=== PATIENT | female | born 1995 | race Hispanic/Latino ===

== ENCOUNTER 2019-11-28 09:34 | Inpatient (IN) | payer SELFPAY ==
[2019-11-28] MEDS ORDERED: Promethazine HCl 25 MG/ML VIAL IM PRN (09:54)
[2019-11-28] MEDS ORDERED: Ondansetron PF 4 MG/2 ML Vial IVP PRN (09:54)
[2019-11-28] MEDS ORDERED: hydrALAZINE 20 MG/ML VIAL SLOW IVP PRN ×2 (09:54→17:31)
[2019-11-28] MEDS ORDERED: Lidocaine 1% (PF) 30 ML VIAL SC PRN (09:54)
[2019-11-28] MEDS ORDERED: NS / Oxytocin 40 units/1000ml 1,000 ML IV PRN (09:54)
[2019-11-28] MEDS: Lactated Ringer's 1,000 ML IV SCH ×3 (09:55→21:47)
[2019-11-28] MEDS ORDERED: NS / Oxytocin 40 units/1000ml 1,000 ML ONE (10:02)
[2019-11-28] MEDS ORDERED: Lidocaine 1% (PF) 30 ML VIAL ONE (10:02)
[2019-11-28 10:09] VITALS: BMI 33.5
[2019-11-28 10:13] LABS: Hemoglobin 12.1 g/dL (12.0-16.0); Mean Corpuscular HGB CONC 33.8 g/dL (32.0-36.0); Mean Platelet Volume 9.4 fL (7.4-10.4); Platelet Count 287 thou/uL (130-400); RBC Distribution Width 12.5 % (11.5-14.5); Red Blood Cell (RBC) Count 4.49 mill/uL (4.20-5.40); White Blood Cell (WBC) Count 10.1 thou/uL (4.8-10.8)
--- NOTE | 2019-11-28 10:13 | PDOC.FPROB ---
FMR OB H&P: Medications - Current Allergies/Adverse Reactions: Allergies Allergy/AdvReac Type Severity Reaction Status Date / Time No Known Allergies Allergy Verified 11/28/19 10:15 FMR OB H&P: Vital Signs - Maternal Vital signs: Vital Signs - First Documented Pulse Resp BP 69 18 130/75 11/28/19 09:45 11/28/19 09:45 11/28/19 09:45 FMR OB H&P: A/P - Problem List (1) Current Visit: Yes Status: Acute Discussion: Date/Time: 11/28/19 1012 PCP: Lashanda LAZAR HPI: Patient comes in for contractions which started yesterday. She currently feels them about 3 minutes apart. She denies any other complaints. She affirms movement, denies ROM or bleeding. Denies SHAW, visual changes, SOB, or swelling. History: OB hx: x1 in [place] PMH: Hx of GDM previous preg PSH: neg Meds: PNV All: NKDA Soc Hx: denies smoking, alcohol, drugs Fam Hx: denies downs, congenital defects GBS: neg Blood type: A+ Ab screen: neg HIV: neg RPR: neg Hep B: neg Rubella: immune 2 hr GTT: neg GC/CT: neg PAP: NILM REVIEW OF SYSTEMS: Gen: no fever, chills, or sweats Neuro: no numbness/tingling, no weakness, denies headache ENT: denies congestion Eyes: no visual changes Resp: denies cough, no production, no SOB, no wheeze Card: denies chest pain, no palpitations GI: denies nausea, vomiting, diarrhea : no dysuria, no hematuria Skin: no rash, no erythema Psych: denies hx anxiety/depression Vitals: T: 98.5 R: 18 BP: 118/76 P:67 at: 98% on RA PHYSICAL EXAMINATION: General: NAD, alert and oriented x3 HEENT: EOMI, normal sclera Neck: Supple. Full ROM. Heart/Cardiovascular System: RRR, Cap refill < 3 seconds, no rub, no murmur Lungs/Respiratory System: clear to auscultation bilaterally. No increased work of breathing. Room air. Abdomen/Gastro-Intestinal System: no abdominal tenderness, normal bowel sounds, Gravid Extremities: Warm extremities. No cyanosis or edema. Neuro: No gross deficits appreciated Psychiatry: Awake, Alert and cooperative with exam Skin: no lesions, no rashes Musculoskeletal: Full ROM A/P: This is a 24 yo at 39.3 wks by 27 wk sono here for labor FHT: 150 baseline, mod variability, no decels, accels present [place]: contractions q3-5 min # - SVE 100/-1 - GBS neg - Expectant management # Enlarged cisterna magna - Needs US after delivery per [facility] Addendum - Attending - Attending Attestation Date/Time: 11/28/19 3274 I personally evaluated the patient and discussed the management with Dr. Workman. I agree with the History, Examination, Assessment and Plan documented above with any addition or exceptions noted below. active labor. hx enlarged cysterna magna. US DOL 2. expectant management.
[2019-11-28] MEDS ORDERED: Butorphanol Tartrate 1 MG/ML VIAL ONE (10:18)
[2019-11-28] MEDS: Butorphanol Tartrate 1 MG/ML VIAL SLOW IVP PRN ×2 (10:23→16:20)
[2019-11-28 10:49] LABS: Syphilis Antibody Nonreactive (Nonreactive); Syphilis Antibody Index 0.05 S/CO (<1.00 Non-Reactive)
[2019-11-28 10:50] LABS: HBSAg Index 0.17 S/CO (0-0.99); Hep B Surf Ag Non-Reactive S/CO (NonReactive)
--- NOTE | 2019-11-28 12:33 | PDOC.LDPN ---
Labor & Delivery Progress Note - Subjective Subjective: painful contractions, no concerns - Objective Vital signs reviewed and normal: yes General: breathing through contractions SVE: soft, anterior Dilation: 7 Effacement: 100% Station: -1 FHT: category 1, variability present [place] contractions every: 3 min Plan: continue plan of care -: - continue expectant mgmt - membranes intact - making change on her own - does not desire epidural.
--- NOTE | 2019-11-28 15:23 | PDOC.LDPN ---
Labor & Delivery Progress Note - Subjective Subjective: painful contractions - Objective Vital signs reviewed and normal: yes General: breathing through contractions SVE: 7100/-1 FHT: category 1 [place] contractions every: 3-5 min AROM: clear fluid IUPC placed: yes FSE placed: yes - Assessment (1) Current Visit: Yes Status: Acute Plan: continue plan of care -: This is a 24 yo at 39.3 wks by 27 wk sono here for labor #sIUP -SVE @ 1500: /-1 - SVE unchanged - AROM, clear fluid - IUPC FSE placed - Cat 1 FHTs after placement of IUPC and FSE, cxn q2-5 min - does not desire epidural. - Continue expectant management, recheck in 2 hours Sunita Workman MD PGY2
--- NOTE | 2019-11-28 16:47 | PDOC.OPDEL ---
OB Operative/Delivery Note Delivery Dr/Surgeon: Steven Herr (continuity), Heidi (attending) Pre-Delivery Diagnosis: active labor Procedure/Post Delivery Dx: spontaneous vaginal delivery Weeks gestation: 39 (39.3) Anesthesia: local (10 mL lidocaine 1%) - Additional Findings/Plan Placenta delivered: spontaneous Repaired Obstetrical Laceration: 1st degree (perineal) Estimated blood loss: QBL 100mL Compilations/Other Findings: Procedure: Spontaneous Vaginal Delivery Anesthesia: Local for Repair QBL: 100 ml Pre-op Diagnosis: 1. Term intrauterine in labor 2. ultrasound showing enlarged cisterna magnum Post-op Diagnosis: 1. Term intrauterine , delivered 2. same as above Indications: A 24 y/o female [id number] presents in active labor Delivery Note: This is 24yo F @ 39.3 wks who delivered a viable F infant at 1615. Following an uneventful antepartum course, a vigorous female was delivered over an intact perineum in the occipitoanterior position. Anterior Shoulder and then remainder of the body delivered. No nuchal cord. The head was held down and mouth and nares were bulb suctioned. Cord clamped after delayed cord clamping and cut and cord blood collected. Placenta delivered intact in the [place] presentation with a 3 vessel cord noted. Fundal massage was performed and the fundus was firm. The cervix and vagina were inspected. First degree perineal laceration noted and repaired with 3-0 vicryl in the usual fashion with good approximation and hemostasis after a local anesthetic of lidocaine was injected at site. One midline periurethral, one right labial abrasions noted and hemostatic. went to mom for [id number] in good condition. Apgars were 8/9 at 1 & 5 minutes, respectively. Patient tolerated delivery well and went to after routine recovery/care. Post delivery plan: routine recovery Addendum - Attending - Attending Attestation Date/Time: 11/28/19 5303 I was present for the entire delivery and agree with the above documentation.
[2019-11-28] MEDS ORDERED: Milk Of Magnesia 30 ML UDCUP PO PRN (17:31)
[2019-11-28] MEDS ORDERED: NS / Oxytocin 40 units/1000ml 1,000 ML IV SCH (17:31)
[2019-11-28] MEDS ORDERED: Lanolin Ointment 7 GM TUBE TOP PRN (17:31)
[2019-11-28] MEDS ORDERED: diphenhydrAMINE 25 MG CAP PO PRN (17:31)
[2019-11-28] MEDS ORDERED: Preparation H Ointment 28 GM TUBE PR PRN (17:31)
[2019-11-28] MEDS ORDERED: Bisacodyl 10 MG SUPP PR PRN (17:31)
[2019-11-28] MEDS: Ibuprofen 800 MG TAB PO SCH (21:47)
[2019-11-28] MEDS: Docusate Calcium (SURFAK) 240 MG CAP PO SCH (21:47)
[2019-11-29] MEDS ORDERED: Acetaminophen 500 MG TAB PO PRN
[2019-11-29] MEDS: Benzocaine-Menthol 82.5 ML CAN TOP PRN ×2 (00:19→08:31)
--- NOTE | 2019-11-29 01:38 | PDOC.PP ---
Post Progress Note Post Day #: 1 Subjective: Pain well controlled. Lochia less than a period. Undecided about contraception. Tolerating PO and ambulating. PO intake tolerated: yes Ambulation: yes Vital Signs (12 hours) Temp Pulse Resp BP Pulse Ox 11/28/19 23:55 98.0 F 77 18 112/58 L 97 11/28/19 20:25 98.3 F 97 18 114/63 97 Weight Weight 85.729 kg - Physical Examination General: NAD Cardiovascular: no m/r/g, RRR Respiratory: clear to auscultation bilaterally, non-labored breathing Abdominal: + bowel sounds, appropriately TTP Neurological: no gross focal deficits Psychiatric: A&Ox3, normal affect Result Diagrams: 11/29/19 06:31 Additional Labs: Post Labs Blood Type A POSITIVE 11/28/19 11:08 Hep Bs Antigen Non-Reactive S/CO (NonReactive) 11/28/19 09:59 - Assessment/Plan Term delivered - PPD #1 - Continue routine PP care - Will discuss contraception at [facility] appt in 2 wks. Pt undecided. - Would like to go home today if everything looks good with baby. Case discussed with Dr Gordon who examined the patient Addendum - Attending - Attending Attestation Date/Time: 11/29/19 0956 I personally evaluated the patient and discussed the management with Dr. Harris. I agree with the History, Examination, Assessment and Plan documented above with any addition or exceptions noted below. D/C this afternoon if baby cleared for d/c.
[2019-11-29] MEDS ORDERED: Sodium Chloride 0.9% 10 ML ONE (04:01)
[2019-11-29] MEDS: Ibuprofen 800 MG TAB PO SCH ×2 (05:49→14:14)
[2019-11-29 06:51] LABS: Hemoglobin 10.2 g/dL (12.0-16.0)
[2019-11-29] MEDS: Ferrous Sulfate 325 MG TAB PO SCH ×2 (07:01→09:26)
[2019-11-29] MEDS: Docusate Calcium (SURFAK) 240 MG CAP PO SCH (08:18)
[2019-11-29] MEDS ORDERED: Prenatal Vitamin 1 TAB PO SCH (09:00)
[2019-11-29] MEDS: Lactated Ringer's 1,000 ML IV SCH (09:26)
[2019-11-29 11:49] VITALS: BP 100/56; TEMP 98.3
[2019-11-29] MEDS ORDERED: Adacel (T-DAP) 0.5 ML SYRINGE IM ONE (17:31)
== END 2019-11-29 18:28 | disposition home or self-care (01) | DRG 807 ==
LOC: L&D/OP 09:34 → L&D 10:44 → 3SE 21:21
PROVIDERS: ADMIT Family Medicine; ATTEND Family Medicine
PROC: 10E0XZZ Delivery of Products of Conception, External Approach (ICD-10-PCS; principal; 2019-11-28)
PROC: 10907ZC Drainage of Amniotic Fluid, Therapeutic from Products of Conception, Via Natural or Artificial Opening (ICD-10-PCS; 2019-11-28)
PROC: 0HQ9XZZ Repair Perineum Skin, External Approach (ICD-10-PCS; 2019-11-28)
PROC: 10H07YZ Insertion of Other Device into Products of Conception, Via Natural or Artificial Opening (ICD-10-PCS; 2019-11-28)
PROC: 10H073Z Insertion of Monitoring Electrode into Products of Conception, Via Natural or Artificial Opening (ICD-10-PCS; 2019-11-28)
DX: O36.63X0 Maternal care for excessive fetal growth, third trimester, not applicable or unspecified (principal); Z37.0 Single live birth; Z3A.39 39 weeks gestation of pregnancy; O70.0 First degree perineal laceration during delivery
CPT/HCPCS: 36415; 85014; 85018; 85027; 86780; 86850; 86900; 86901; 87340; 99285; J0595; J2001

== ENCOUNTER 2022-10-12 09:14 | Emergency (ER) | payer MEDICAID, SELFPAY ==
[2022-10-12] MEDS ORDERED: Ketorolac Tromethamine 30 MG/ML VIAL ONE (10:52)
[2022-10-12 11:26] LABS: Pregnancy Test - Urine (BHCG) Negative (Negative); Pregu Control Background? CLEAR/WHITE (CLR/WHITE); Pregu Control Bar Appear? YES (CONTROL BAR); Specific Gravity 1.026 (1.002-1.036)
[2022-10-12 11:59] LABS: #Basophils 0.1 thou/uL (0.0-0.2); #Eosinphils 0.2 thou/uL (0.0-0.7); #Lymphocytes 3.1 thou/uL (1.20-3.40); #Monocytes 0.5 thou/uL (0.11-0.59); #Neutrophils 6.9 thou/uL (1.40-6.50); %Basophils 0.8 % (0.0-1.0); %Lymphocytes 28.6 % (21.0-51.0); %Monocytes 4.5 % (0.0-10.0); %Neutrophils 64.1 % (42.0-75.0); Hemoglobin 13.7 g/dL (12.0-16.0); Mean Corpuscular HGB CONC 32.7 g/dL (32.0-36.0); Mean Corpuscular Volume 85.6 fl (78.0-98.0); Mean Platelet Volume 8.8 fL (7.4-10.4); Platelet Count 271 10x3/uL (130-400); RBC Distribution Width 12.4 % (11.5-14.5); Red Blood Cell (RBC) Count 4.88 mill/uL (4.20-5.40); White Blood Cell (WBC) Count 10.8 10x3/uL (4.8-10.8)
[2022-10-12 12:20] LABS: ALT (SGPT) 30 U/L (8-55); AST (SGOT) 17 U/L (5-34); Albumin 4.1 g/dL (3.5-5.0); Alkaline Phosphatase 76 U/L (40-110); Anion Gap 11 mmol/L (10-20); BUN (Urea Nitrogen) 10 mg/dL (7.0-18.7); Bilirubin, Total 0.4 mg/dL (0.2-1.2); Calc. Creatinine Clearance 0 mL/min (70-130); Calcium 9.4 mg/dL (7.8-10.44); Carbon Dioxide 24 mmol/L (22-29); Chloride 105 mmol/L (98-107); Estimated GFR 126; Globulin 3.1 g/dL (2.4-3.5); Glucose 85 mg/dL (70-105); Potassium 4.1 mmol/L (3.5-5.1); Protein, Total 7.2 g/dL (6.0-8.3); Sodium 136 mmol/L (136-145)
== END 2022-10-12 13:00 | disposition home or self-care (01) ==
LOC: ERS 09:14
DX: M54.50 Low back pain, unspecified (principal); E11.9 Type 2 diabetes mellitus without complications; Z79.84 Long term (current) use of oral hypoglycemic drugs
CPT/HCPCS: 36415; 71045; 80053; 81025; 85025; 96372; J1885